=== PATIENT | female | born 1995 | race Caucasian/White ===

== ENCOUNTER 2019-11-30 06:08 | Emergency (ER) | payer OTHER ==
[~2019-11-30] VITALS: Ht 154.9 cm; Wt 52.2 kg
--- NOTE | 2019-11-30 06:16 | NUR ---
PT BIBBOYFRIEND C/O PARANOID THOUGHTS S/P DRUG AND ALCOHOL USE. PT AWAKE, FLIGHT OF IDEAS, CONSTANTLY NEEDS REDIRECTING. RESPIRATIONS EVEN AND UNLABORED. SKIN WARM AND INTACT. NO ACUTE DISTRESS NOTED AT THIS TIME. SECURITY AND SITTER AT BEDSIDE. PLACED ON MONITOR, WILL CONTINUE TO MONITOR
[2019-11-30] MEDS ORDERED: OLANZAPINE 10 MG VIAL IM ONE ×2 (06:23→06:30)
--- NOTE | 2019-11-30 06:50 | NUR ---
URINE COLLECTED AND SENT TO LAB
--- NOTE | 2019-11-30 06:52 | NUR ---
PT APPEARS MORE CALM AND COOPERATIVE. LEAD PL [address] DEVELOPER AT BEDSIDE FOR BLOOD DRAW
[2019-11-30 07:02] LABS: BASOPHILS % (AUTO) 0.2 % (0.0-2.0); EOSINOPHILS % (AUTO) 0.3 % (0.0-6.0); HEMATOCRIT 41 % (33-45); HEMOGLOBIN 13.6 g/dL (11.5-14.8); LYMPHOCYTES % (AUTO) 22.2 % (20.0-44.0); MEAN CORPUSCULAR HGB CONC 33 g/dl (31.0-36.0); MEAN CORPUSCULAR VOLUME 96 fL (82-100); MONOCYTES # (AUTO) 0.3 /CMM (0.1-1.30); MONOCYTES % (AUTO) 6.9 % (2.0-12.0); NEUTROPHILS # (AUTO) 3.1 /CMM (1.8-8.9); NEUTROPHILS % (AUTO) 70.4 % (43.0-81.0); PLATELET COUNT (AUTO) 194 /CMM (150-450); RED BLOOD CELL COUNT(AUTO) 4.27 MIL/uL (4.0-5.2); WHITE BLOOD COUNT (AUTO) 4.5 K/uL (4.3-11.0)
[2019-11-30 07:04] LABS: APPEARANCE,URINE CLEAR (CLEAR); BILIRUBIN,URINE NEGATIVE (NEGATIVE); BLOOD, URINE NEGATIVE Ery/uL (NEGATIVE); COLOR,URINE YELLOW (YELLOW); KETONES,URINE 15 (NEGATIVE); LEUKOCYTE ESTERASE ,URINE NEGATIVE (NEGATIVE); NITRITE, URINE NEGATIVE (NEGATIVE); PROTEIN,URINE NEGATIVE (NEGATIVE); UGLUCOSE NEGATIVE (NEGATIVE); UROBILINOGEN,URINE 0.2 EU/dL (0.2)
[2019-11-30 07:19] LABS: ALANINE AMINOTRANSFERASE 20 U/L (12-78); ALBUMIN 4.1 g/dL (3.4-5.0); ALCOHOL, BLOOD < 3 mg/dL (0-0); ALKALINE PHOSPHATASE 37 U/L (46-116); ASPARTATE AMINOTRANSFERASE 18 U/L (15-37); BACTERIA,URINE Few /HPF (None Seen); BILIRUBIN,DIRECT 0.1 mg/dL (0.0-0.2); BILIRUBIN,TOTAL 0.4 mg/dL (0.2-1.0); CALCIUM, SERUM 8.7 mg/dL (8.5-10.1); CARBON DIOXIDE 22 mmol/L (21-32); CREATININE 0.9 mg/dL (0.6-1.3); GLUCOSE 139 mg/dL (74-106); MUCUS,URINE Few /LPF (None Seen); SALICYLATE 3.5 mg/dL (2.8-20.0); SQUAMOUS EPITHELIAL CELL,UR Few /HPF (None Seen); TOTAL PROTEIN, SERUM 6.9 g/dL (6.4-8.2); UREA NITROGEN, BLOOD 7 mg/dL (7-18); URINE AMORPHOUS URATE Few /HPF (None Seen); WBC,URINE 0-2 /HPF (0-3)
[2019-11-30 07:44] LABS: ACETAMINOPHEN 0 ug/ml (10-30)
--- NOTE | 2019-11-30 08:29 | NUR ---
PT IS AWAKE. COOPERATIVE. PT AMBULATORY TO BATHROOM IN STEADY GAIT. CALLED FOR MEAL TRAY.
[2019-11-30 08:45] LABS: CHLORIDE 106 mmol/L (98-107); POTASSIUM 3.2 mmol/L (3.5-5.1); SODIUM SERUM 143 mmol/L (136-145)
--- NOTE | 2019-11-30 08:50 | NUR ---
PT STATED SHE IS NOT SUICIDAL AND WANTS TO BE DISCHARGED. MD AWARE.
--- NOTE | 2019-11-30 08:56 | NUR ---
Patient discharged to home in stable condition. Written and verbal after care instructions given. Patient verbalizes understanding of instruction.
[2019-11-30 08:59] VITALS: BP 122/82
== END 2019-11-30 09:00 | disposition home or self-care (01) ==
LOC: ER 06:08
DX: F22 Delusional disorders (principal); F12.90 Cannabis use, unspecified, uncomplicated; R45.1 Restlessness and agitation; R00.0 Tachycardia, unspecified; Z88.6 Allergy status to analgesic agent; Z60.2 Problems related to living alone
CPT/HCPCS: 36415; 80048; 80076; 80305; 80307; 80329; 81001; 84702; 85025; 96372; 99283; G0480; J3490; 81000-TC